=== PATIENT | female | born 2005 | race Caucasian/White ===

== ENCOUNTER 2024-12-16 22:09 | Emergency (ER) | payer BC, SELFPAY ==
[2024-12-16 22:10] VITALS: BP 111/66; PULSE 94; RESP 14; TEMP 37.1; O2SAT 99; BMI 19.9
--- NOTE | 2024-12-16 22:29 | ED.RN ---
PT. WALKED UP TO TRIAGE DESK AND STATED HOW LONG IS THE WAIT TIME. PT. EDUCATED ON [facility] PROCESS AND INABILITY TO PROVIDE WAIT TIMES. PT. EXITED THE DEPARTMENT. LEFT BEFORE SEEING A PROVIDER. REGISTRATION NOTIFIED.
--- NOTE | 2024-12-16 22:39 | ED.RN ---
PT. RETURNED TO ED WAITING ROOM FROM OUTSIDE THE DEPARTMENT.
--- NOTE | 2024-12-17 01:08 | EX.ED.VIS.EY ---
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 She states it was red, burning, irritation, and she saw a film in her eye despite irrigating it herself. She does not wear contacts or glasses. She denies any major vision changes. PFSH PFSH Medical History no medical history no medical history Allergy/AdvReac Type Severity Reaction Status Date / Time No Known Allergies Allergy Verified 12/16/24 22:10 Social History Smoking Status: Smoker, status unknown ROS ROS ED Constitutional Constitutional ED: Denies chills or fever(s) Eyes Eyes: Reports as per HPI and eye pain; Denies change in vision ENT ENT ED: Denies ear pain, rhinorrhea or sore throat Neurologic Neurologic: Denies headache(s), paresthesias or weakness EXAM Physical Exam Const Vital Signs: 12/16/24 22:10 Temperature 98.7 F Temperature Source Oral Pulse Rate 94 Respiratory Rate 14 Blood Pressure 111/66 Blood Pressure Mean 81 Pulse Ox 99 Oxygen Delivery Method Room Air Positive well nourished and well developed General Appearance ED: well developed and NAD HEENT atraumatic; Negative for tenderness Mouth ED: Yes oral and palatal mucosa normal and Yes lips normal Mouth: oral and palatal mucosa normal and lips normal Eyes PERRL and EOMs intact bilaterally Eyes Narrative: Bulbar conjunctival injection left eye mild. No chemosis. Cornea appears normal. There is no foreign material within the eye and gross inspection. On slit-lamp exam, the cornea is intact, anterior chamber is deep and quiet, there is punctate debris on the cornea that moves when the patient blinks. Otherwise the exam is normal and benign there is no ulcers or signs of an abrasion. Neuro oriented x3, CN's II-XII intact bilaterally and gait normal Sensorium / Orientation: alert Skin Lesions: no lesions Rashes: no rashes MDM MDM MDM Narrative Medical decision making narrative: We did visual acuities, patient is actually better in her affected eye, 20/15, where she is 20/40 on the right. I checked the pH of her eye fluid, it is 7-8, normal. Slit-lamp exam looks like she had a couple of minor debris floaters on the cornea that were mobile, she was amenable to tetracaine and a Hemant lens, she was able to tolerate about 300 cc of sterile saline irrigant, and afterwards she felt much better. I reexamined her with slit-lamp, I see no debris or anything on the cornea, no ulcerations or signs of injury. Anterior chambers deep and quiet. She feels like her vision is normal. Reassured, given ophthalmology to follow-up with if needed, but I suspect her residual chemical conjunctivitis will resolve within a couple days. Discharge Plan Triage Chief Complaint: Eye Problem ED Provider: Steven Larsen Dx/Rx/DC Orders Clinical Impression: Chemical exposure of eye, Acute chemical conjunctivitis of left eye Instructions: ED Eye Exposure, Chemical Primary Care Provider: Care Physician,No Primary Referrals: Carlton Villalta MD [Med Staff - Active Staff, Surgery] - 3-5 Days if not improving Print Language: Burkinan Disposition Disposition: Home, Self Care
[2024-12-17] MEDS: Tetracaine 0.5% Ophthalmic Bottle 2 DRP LEFT EYE (01:11)
[2024-12-17 02:10] VITALS: BP 110/60; PULSE 70; RESP 18
[2024-12-17 03:41] VITALS: BP 115/65; PULSE 62; RESP 16; TEMP 36.6; O2SAT 100
== END 2024-12-17 03:41 | disposition home or self-care (01) ==
PROVIDERS: Emergency Provider Emergency Medicine; Visit Provider Emergency Medicine
DX: H10.212 Acute toxic conjunctivitis, left eye (principal); F17.200 Nicotine dependence, unspecified, uncomplicated
CPT/HCPCS: 99284